=== PATIENT | male | born 1990 | race Hispanic/Latino ===

== ENCOUNTER 2018-07-25 19:43 | Emergency (ER) | payer OTHER ==
[2018-07-25] MEDS ORDERED: CLINDAMYCIN HCL 150 MG CAP ONE (20:37)
[2018-07-25] MEDS ORDERED: KETOROLAC TROMETHAMINE 30MG/ML ONE (20:37)
== END 2018-07-25 21:03 | disposition home or self-care (01) ==
LOC: EDH 19:43
DX: K13.0 Diseases of lips (principal)
CPT/HCPCS: 96372; 99283; J1885